=== PATIENT | male | born 1995 | race Caucasian/White ===

== ENCOUNTER → 2017-04-30 15:19 | Outpatient (POV) | payer BC, OTHER, SELFPAY ==
[2017-04-30 15:36] VITALS: BP 128/81; PULSE 81; RESP 20; O2SAT 98
--- NOTE | 2017-04-30 15:58 | P.CONS_ITS ---
Assessment and Plan (1) Degenerative joint disease (DJD) of lumbar spine Current visit: Yes Status: Chronic Qualifiers: Spinal osteoarthritis complication: without myelopathy or radiculopathy Qualified Code(s): M47.816 - Spondylosis without myelopathy or radiculopathy, lumbar region Category: Medical Code(s): M47.816 - Spondylosis without myelopathy or radiculopathy, lumbar region - Assessment and plan all Dx Assessment and Plan for all problems:: We will seek approval and plan on lumbar pleural steroid injection under fluoroscopy. This will be at the L3-L4 level. HPI - Data of Consult Patient: new to practice Consult date: 04/30/17 Requesting Physician: Pérez Ward MD Primary Care Provider: Referral Provider, Family Provider: Referral Provider, - Consult Narrative Reason for consult: Low back pain History of present illness: Mr. Ramirez is a 21 year old male referred by Dr. Conte for low back pain. He has a history of L1 fracture that occurred in December 2014. This is since then healed however he still has some continued low back pain. MRI does show degenerative changes at L1-L2, L2-L3, L3-L4 with a healed L1 fracture. Most of his pain is in the low back. He does not have much radicular symptoms. He has tried physical therapy with no relief of his pain symptoms. He is also tried chiropractic therapy with no relief of his pain symptoms. He has been on nonsteroidal anti-inflammatories for 4 months. I believe he would benefit from a lumbar epidural steroid injection under fluoroscopy. CC: Pérez Ward MD [facility] History I have reviewed the patient's past medical history: Yes - *Social History Alcohol Intake: never Occupational Status: employed - Psychiatric History Expresses thoughts of harming self/others: None Suicide Plan Description: No Plan Review of Systems - Review of Systems Review of systems:: pertinent systems reviewed and negative unless documented below - *Musculoskeletal Reports back pain Meds Allergies Allergy/AdvReac Type Severity Reaction Status Date / Time No Known Allergies Allergy Unverified 03/20/17 14:08 Objective Vital signs: Pulse Resp BP Pulse Ox 81 20 128/81 98 04/30/17 15:36 04/30/17 15:36 04/30/17 15:36 04/30/17 15:36 - Routine Back/Spine/Pelvis Exam Back/Spine: Present: vertebral tenderness - *Routine Neurological Exam Present: alert, oriented X3, moving all extremities, normal tone Opioid Risk Tool - Opioid Risk Tool-Male Family hx alcohol abuse: N Family hx illegal drugs: N Family hx rx drug abuse: N Personal hx alcohol abuse: N Personal hx illegal drugs: N Personal hx rx drug abuse: N Age: 16-45 Hx of sexual abuse: N Mental health issues-ADD,OCD,Bipolar, etc: N Hx of depression: N Male Risk Score: 1
== END ==
PROVIDERS: Visit Provider Anesthesiology
DX: M47.816 Spondylosis without myelopathy or radiculopathy, lumbar region (principal)
CPT/HCPCS: 99212

== ENCOUNTER → 2017-05-04 12:00 | Outpatient (REF) | payer BC, OTHER, SELFPAY ==
[2017-05-07 15:32] LABS: Amphetamine/Metha Screen,Urine Negative ng/mL (<1000); Barbiturates Screen,Urine Negative ng/mL (<200); Benzodiazepines Screen,Urine Negative ng/mL (200); Cannabinoid Screen,Urine Negative ng/mL (<50); Cocaine Screen,Urine Negative ng/g (<300); Methadone Screen,Urine Negative ng/mL (<300); Opiate Screen,Urine Negative ng/mL (<300); Phencyclidine Screen,Urine Negative ng/mL (<25)
== END ==
LOC: LAB 12:00
PROVIDERS: Visit Provider Nurse Practitioner Family
DX: M47.816 Spondylosis without myelopathy or radiculopathy, lumbar region (principal)
CPT/HCPCS: 80305

== ENCOUNTER → 2017-05-05 08:26 | Outpatient (CLI) | payer BC, OTHER, SELFPAY ==
[2017-05-05 10:19] LABS: Basophils % 0.7 % (0.1-2.0); Eosinophils # 0.1 K/mm3 (0.0-0.4); Eosinophils % 2.2 % (0.1-12.0); Hematocrit 48.5 % (42.0-52.0); Hemoglobin 16.4 g/dL (14.1-18.0); Lymphocytes % 39.6 K/mm3 (10-50); Mean Corpuscular HGB Conc 33.8 g/dL (31.8-35.4); Mean Corpuscular Hemoglobin 29.9 pg (27.0-31.2); Mean Corpuscular Volume 88.6 fl (80-94); Monocytes # 0.3 K/mm3 (0.1-1.0); Monocytes % 6.4 % (1.7-9.3); Neutrophils # 2.6 K/mm3 (1.8-7.8); Neutrophils % 51.1 % (37.0-80.0); Platelet Count 234 K/mm3 (142-424); Red Blood Count 5.48 M/mm3 (4.60-6.20); Red Cell Distribution Width 12.2 % (11.5-17.5); White Blood Count 5.1 K/mm3 (4.8-10.8)
[2017-05-05 11:18] LABS: Alanine Aminotransferase 32 U/L (12-78); Albumin/Globulin Ratio 1.6 (1.1-1.8); Alkaline Phosphatase 69 U/L (46-116); Anion Gap 11.3 mEq/L (5-15); Aspartate Amino Transferase 16 U/L (15-37); Bilirubin,Total 0.7 mg/dL (0.2-1.0); Blood Urea Nitrogen 13 mg/dL (7-18); Calcium 8.6 mg/dL (8.5-10.1); Carbon Dioxide 29 mmol/L (21.0-32.0); Chloride 105 mmol/L (98-107); Chol/HDL Ratio 2.8 (1-3.5); Cholesterol 116 mg/dL (140-200); Creatinine,Serum 0.77 mg/dL (0.70-1.30); Estimated Glomerular Filt Rate 126 ml/min (>60); GFR (African American) 153 ML/MIN (>60); Globulin 2.5 gm/dl (1.3-3.2); Glucose 84 mg/dL (74-106); HDL Cholesterol 41 mg/dL (27-67); LDL Cholesterol 67 mg/dL (0-130); Potassium 4.3 mmoL/L (3.5-5.1); Sodium 141 mmol/L (136-145); T4 (Thyroxine) 7.3 ug/dl (4.7-13.3); Thyroid Stimulating Hormone 0.88 uIU/ml (0.358-3.740); Total Protein,Serum 6.5 gm/dL (6.4-8.2); Triglycerides 39 mg/dL (30-200); VLDL Cholesterol 8 mg/dL (0-40)
[2017-05-08 06:22] LABS: Vitamin D 25 Hydroxy 28.5 ng/mL (30.0-100.0)
== END ==
PROVIDERS: PCP Nurse Practitioner Family; Visit Provider Nurse Practitioner Family
DX: M47.816 Spondylosis without myelopathy or radiculopathy, lumbar region; E66.9 Obesity, unspecified
CPT/HCPCS: 36415; 80053; 80061; 82652; 84436; 84443; 85025

== ENCOUNTER → 2017-09-21 16:06 | Outpatient (CLI) | payer BC, OTHER, SELFPAY | PROVIDERS: Visit Provider Nurse Practitioner Family | DX: Z79.899 Other long term (current) drug therapy (principal) ==

== ENCOUNTER → 2018-02-18 15:54 | Outpatient (CLI) | payer BC, SELFPAY ==
[2018-02-18 16:26] LABS: Amphetamine/Metha Screen,Urine Negative ng/mL (<1000); Barbiturates Screen,Urine Negative ng/mL (<200); Benzodiazepines Screen,Urine Negative ng/mL (<200); Cannabinoid Screen,Urine Negative ng/mL (<50); Cocaine Screen,Urine Negative ng/mL (<300); Methadone Screen,Urine Negative ng/mL (<300); Opiate Screen,Urine Negative ng/mL (<300); Phencyclidine Screen,Urine Negative ng/mL (<25)
[2018-02-18 16:28] LABS: Basophils # 0.1 K/mm3 (0-0.2); Basophils % 0.8 % (0.1-2.0); Eosinophils # 0.1 K/mm3 (0.0-0.4); Eosinophils % 1.6 % (0.1-12.0); Hematocrit 50.7 % (42.0-52.0); Hemoglobin 17.1 g/dL (14.1-18.0); Lymphocytes # 2.2 K/mm3 (0.7-4.5); Lymphocytes % 36.3 % (10-50); Mean Corpuscular HGB Conc 33.6 g/dL (31.8-35.4); Mean Corpuscular Hemoglobin 29.5 pg (27.0-31.2); Mean Corpuscular Volume 87.8 fl (80-94); Mean Platelet Volume 7.3 fl (7.4-10.4); Monocytes # 0.3 K/mm3 (0.1-1.0); Monocytes % 4.9 % (1.7-9.3); Neutrophils # 3.3 K/mm3 (1.8-7.8); Neutrophils % 56.4 % (37.0-80.0); Platelet Count 257 K/mm3 (142-424); Red Blood Count 5.78 M/mm3 (4.60-6.20); Red Cell Distribution Width 12.8 % (11.5-17.5); White Blood Count 5.9 K/mm3 (4.8-10.8)
[2018-02-18 16:31] LABS: Glucose,Fasting 79 mg/dL (60-105)
[2018-02-18 17:39] LABS: Alanine Aminotransferase 47 U/L (12-78); Albumin Level 4.4 gm/dL (3.4-5.0); Albumin/Globulin Ratio 1.6 (1.1-1.8); Alkaline Phosphatase 66 U/L (46-116); Anion Gap 11.8 mEq/L (5-15); Aspartate Amino Transferase 20 U/L (15-37); Bilirubin,Total 0.7 mg/dL (0.2-1.0); Blood Urea Nitrogen 17 mg/dL (7-18); Carbon Dioxide 30 mmol/L (21.0-32.0); Chloride 102 mmol/L (98-107); Chol/HDL Ratio 2.9 (1-3.5); Cholesterol 127 mg/dL (140-200); Creatinine,Serum 0.82 mg/dL (0.70-1.30); Estimated Glomerular Filt Rate 116 ml/min (>60); GFR (African American) 141 ML/MIN (>60); Globulin 2.8 gm/dl (1.3-3.2); Glucose 71 mg/dL (74-106); HDL Cholesterol 44 mg/dL (27-67); LDL Cholesterol 75 mg/dL (0-130); Potassium 3.8 mmoL/L (3.5-5.1); Sodium 140 mmol/L (136-145); T4 (Thyroxine) 8.1 ug/dl (4.7-13.3); Thyroid Stimulating Hormone 0.88 uIU/ml (0.358-3.740); Total Protein,Serum 7.2 gm/dL (6.4-8.2); Triglycerides 38 mg/dL (30-200); VLDL Cholesterol 8 mg/dL (0-40)
[2018-02-18 18:32] LABS: Glucose 1 Hour 151 mg/dL (74-106)
[2018-02-18 18:59] LABS: Glucose 2 Hour 129 mg/dL (74-106)
[2018-02-18 19:49] LABS: Glucose 3 Hour 99 mg/dL (74-106)
[2018-02-20 08:43] LABS: Vitamin D 25 Hydroxy 39.7 ng/mL (30.0-100.0)
== END ==
PROVIDERS: Visit Provider Nurse Practitioner Family
DX: E16.2 Hypoglycemia, unspecified (principal); R53.83 Other fatigue; Z02.83 Encounter for blood-alcohol and blood-drug test; E66.09 Other obesity due to excess calories
CPT/HCPCS: 36415; 80053; 80061; 80305; 82652; 82951; 83036; 84436; 84443; 85025

== ENCOUNTER 2018-07-23 16:43 | Outpatient (RCR) | payer BC, SELFPAY | END 2018-07-23 16:50 | disposition home or self-care (01) | LOC: PT 16:43 | PROVIDERS: Visit Provider Nurse Practitioner Family | DX: M54.2 Cervicalgia (principal) | CPT/HCPCS: 97163 ==

== ENCOUNTER → 2019-08-20 16:46 | Outpatient (CLI) | payer BC, SELFPAY ==
[2019-08-20 19:30] LABS: Chloride 102 mmol/L (98-107); Potassium 4.1 mmoL/L (3.5-5.1); Sodium 136 mmol/L (136-145)
[2019-08-20 19:32] LABS: Blood Urea Nitrogen 11 mg/dl (9-20)
[2019-08-20 19:33] LABS: Alanine Aminotransferase 28 U/L (12-78); Albumin Level 4.5 g/dl (3.5-5.0); Albumin/Globulin Ratio 1.8 (1.1-1.8); Alkaline Phosphatase 83 U/L (38-126); Anion Gap 12.1 mEq/L (5-15); Aspartate Amino Transferase 30 U/L (17-59); Bilirubin,Total 0.6 mg/dl (0.2-1.3); Calcium 9.2 mg/dl (8.4-10.2); Carbon Dioxide 26 mmol/L (22.0-30.0); Cholesterol 130 mg/dl (140-200); Estimated Glomerular Filt Rate 137 ml/min (>60); GFR (African American) 166 ML/MIN (>60); Globulin 2.5 g/dL (1.3-3.2); Glucose 83 mg/dl (74-100); Triglycerides 82 mg/dl (30-150); VLDL Cholesterol 16 mg/dL (0-40)
[2019-08-20 19:34] LABS: HDL Cholesterol 43 mg/dl (40-60)
[2019-08-20 19:46] LABS: Direct LDL Cholesterol 88.26 mg/dL (100-129)
[2019-08-20 19:52] LABS: T4 (Thyroxine) 8.1 ug/dl (5.53-11.0)
[2019-08-20 20:06] LABS: Thyroid Stimulating Hormone 1.58 uIU/mL (0.465-4.68)
[2019-08-22 05:36] LABS: PSA, Free 0.14 ng/mL; Prostate Specific Ag 0.3 ng/mL (0.0-4.0)
[2019-08-22 09:29] LABS: Vitamin D 25 Hydroxy 28.8 ng/mL (30.0-100.0)
== END ==
PROVIDERS: Visit Provider Nurse Practitioner Family
DX: Z01.89 Encounter for other specified special examinations (principal); E55.9 Vitamin D deficiency, unspecified; E66.9 Obesity, unspecified; Z68.31 Body mass index [BMI] 31.0-31.9, adult
CPT/HCPCS: 80053; 80061; 82652; 84153; 84154; 84436; 84443

== ENCOUNTER → 2020-06-22 08:35 | Outpatient (CLI) | payer OTHER, SELFPAY ==
--- NOTE | 2020-06-22 08:38 | MR_ITS ---
PROCEDURE: MR LUMBAR SPINE WO CON CLINICAL INDICATION: LOW BACK PAIN Pt states hx of lumbar fx in 2015 or 2016. Pt now c/o bilateral hip and leg pain [id number] with no known injury or trauma. COMPARISON: CT LSWO CT LUMBAR SPINE W/O CONTRAST from 01/06/2015 TECHNIQUE: Standard multiplanar multiecho sequences are performed without contrast. 3-D MIP and myelographic images are also rendered and reviewed FINDINGS: There is normal alignment. The cord ends at the L1. T11-T12: Unremarkable. T12-L1: Chronic wedge compression changes involve the central and anterior aspect of L1 with loss of height anteriorly of approximately 30-40 percent. This is similar compared to the previous study of 01/06/2015. Schmorl's nodes are present at the endplates. No retropulsed fragments are apparent. Degenerative disc disease L1-L2: Degenerative disc disease. L2-L3: Degenerative disc disease. L3-L4: Mild degenerative disc disease. L4-5: Unremarkable. L5-S1: Unremarkable. IMPRESSION: Mild multilevel degenerative disc disease with chronic wedge compression changes of L1. No acute finding. Dictated by: Dimitry Grijalva MD 06/23/2020 12:53 Dimitry Grijalva MD in [place] 06/23/2020 12:53
--- NOTE | 2020-06-22 08:47 | XR_ITS ---
PROCEDURE: XR ORBIT BILATERAL MIN 4V CLINICAL INDICATION: R/O METAL IN EYES PRIOR TO MRI COMPARISON: No exams were available for comparison TECHNIQUE: AP views are obtained of the orbits with the patient looking up and down. FINDINGS: No radio opaque foreign bodies evident. IMPRESSION: No radio opaque orbital foreign body identified. Dictated by: Dimitry Grijalva MD 06/22/2020 09:05 Dimitry Grijalva MD in [facility] 06/22/2020 09:05
== END ==
PROVIDERS: PCP Nurse Practitioner Family; Visit Provider Orthopaedic Surgery Adult Reconstructive Orthopaedic Surgery
DX: M54.5 Low back pain (principal); H05.53 Retained (old) foreign body following penetrating wound of bilateral orbits
CPT/HCPCS: 70200; 72148; 76376

== ENCOUNTER 2022-05-27 22:29 | Observation (INO) | payer OTHER, SELFPAY ==
[2022-05-27 22:30] VITALS: BP 148/97; PULSE 92; RESP 16; TEMP 37.4; O2SAT 99; BMI 30.4
[2022-05-27 22:37] VITALS: BP 154/100; PULSE 89; RESP 18; O2SAT 99
[2022-05-27 22:44] VITALS: BP 148/97; PULSE 91; RESP 16; O2SAT 97
--- NOTE | 2022-05-27 23:14 | CT_ITS ---
PROCEDURE INFORMATION: Exam: CT Abdomen And Pelvis With Contrast Exam date and time: 05/27/2022 11:42 PM Age: 26 years old Clinical indication: Abdominal pain; Additional info: R L low abd pain, tender distended, hypoactive TECHNIQUE: Imaging protocol: Computed tomography of the abdomen and pelvis with contrast. Radiation optimization: All CT scans at this facility use at least one of these dose optimization techniques: automated exposure control; mA and/or kV adjustment per patient size (includes targeted exams where dose is matched to clinical indication); or iterative reconstruction. Contrast material: ISOVUE; Contrast volume: 75 ml; Contrast route: IV; REPORTING DATA: Count of CT and Cardiac NM exams in prior 12 months: This patient has received 0 known CTs and 0 known cardiac nuclear medicine studies in the 12 months prior to the current study. COMPARISON: MR LUMBAR SPINE WO CON 06/22/2020 9:02 AM FINDINGS: Lungs: Minimal bibasilar atelectasis. Liver: Normal. No mass. Gallbladder and bile ducts: Normal. No calcified stones. No ductal dilation. Pancreas: Normal. No ductal dilation. Spleen: Subcentimeter hypodensity in the spleen likely a hemangioma or cyst. Adrenal glands: Normal. No mass. Kidneys and ureters: Normal. No hydronephrosis. Stomach and bowel: The adjacent terminal ileum is mildly thickened as well. No evidence of bowel obstruction. Stool in the proximal colon with decompressed distal colon. Appendix: The appendix is enlarged to 10 mm on series 3, image 84. The appendiceal wall is thickened. Intraperitoneal space: Unremarkable. No free air. No significant fluid collection. Vasculature: Unremarkable. No abdominal aortic aneurysm. Lymph nodes: Unremarkable. No enlarged lymph nodes. Urinary bladder: Unremarkable as visualized. Reproductive: Unremarkable as visualized. Bones/joints: Mild L1 central compression deformities unchanged. Soft tissues: Unremarkable. IMPRESSION: Findings consistent with acute appendicitis. No evidence of complication.
[2022-05-27 23:21] LABS: Microscopic, Urine URINE MICROSCOPIC (MICROSCOPIC)
[2022-05-27 23:23] LABS: Basophils # 0.1 K/mm3 (0-0.2); Basophils % 0.5 % (0.1-2.0); Eosinophils # 0.4 K/mm3 (0.0-0.4); Eosinophils % 2.1 % (0.1-12.0); Hematocrit 48.7 % (42.0-52.0); Hemoglobin 16.5 g/dL (14.1-18.0); Lymphocytes % 5.9 % (10-50); Mean Corpuscular Hemoglobin 29.9 pg (27.0-31.2); Mean Corpuscular Volume 87.9 fl (80-94); Monocytes # 0.8 K/mm3 (0.1-1.0); Monocytes % 4.5 % (1.7-9.3); Neutrophils # 15.1 K/mm3 (1.8-7.8); Platelet Count 281 K/mm3 (142-424); Red Blood Count 5.54 M/mm3 (4.60-6.20); Red Cell Distribution Width 13.2 % (11.5-17.5); White Blood Count 17.4 K/mm3 (4.8-10.8)
[2022-05-27 23:25] LABS: Appearance,Urine CLEAR (Clear); Bilirubin,Urine Negative (Negative); Blood, Urine Negative (Negative); Color,Urine YELLOW (Yellow); Glucose,Urine (UA) Negative (Negative); Ketones,Urine TRACE (Negative); Leukocyte Esterase,Urine Negative (Negative); Nitrate,Urine Negative (Negative); PH,Urine 7.5 (5.0-8.5); Protein,Urine Negative (Negative); Urobilinogen,Urine 0.2 EU/dl (0.2)
[2022-05-27 23:25] LABS: MANUAL DIFFERENTIAL MANUAL DIFFERENTIAL (MANUAL DIFF)
[2022-05-27 23:28] LABS: Alanine Aminotransferase 37 U/L (12-78); Albumin Level 4.7 g/dl (3.5-5.0); Albumin/Globulin Ratio 1.9 (1.1-1.8); Alkaline Phosphatase 79 U/L (38-126); Amylase 56 U/L (30-110); Anion Gap 4.8 mEq/L (5-15); Aspartate Amino Transferase 33 U/L (17-59); Bilirubin,Total 1.2 mg/dl (0.2-1.3); Blood Urea Nitrogen 9 mg/dl (9-20); Calcium 8.8 mg/dl (8.4-10.2); Carbon Dioxide 32 mmol/L (22.0-30.0); Chloride 103 mmol/L (98-107); Creatinine Clearance Estimated 178 mL/min (50-200); Estimated Glomerular Filt Rate 116 ml/min (>60); GFR (African American) 140 ML/MIN (>60); Globulin 2.5 g/dL (1.3-3.2); Glucose 102 mg/dl (74-100); Lipase 32 U/L (23-300); Potassium 3.8 mmoL/L (3.5-5.1); Sodium 136 mmol/L (136-145); Total Protein,Serum 7.2 g/dl (6.3-8.2)
--- NOTE | 2022-05-27 23:29 | HMH.EDABDPAI ---
Discharge Plan Disposition Patient Disposition: Admitted As Inpatient Chief Complaint: Abdominal Pain Prescriptions Prescriptions: No Action phentermine [Adipex-P] 37.5 mg tablet 37.5 mg PO DAILY Qty: 30 0RF Rx Instructions: must administer 30 minutes before or 1-2 hours after breakfast Referrals Follow up/Referrals: Wang Rivera APRN [Primary Care Provider] - See instructions Henri Raygoza MD [Staff Physician] - See instructions Clinical Impressions Clinical Impression: Acute appendicitis Discharge ED Provider: Shelbi (ED)Kenneth Abdominal Pain HPI General Chief Complaint: Abdominal Pain Stated Complaint: lower Abd Pain Time Seen by Provider: 05/27/22 23:29 Mode of Arrival: Family Vehicle Source of Information: Patient and Medical Record Limitations: No Limitations Description of Symptoms (Recalled from ER Triage Doc. by RN): Pt c/o lower abd pain that began last night after dinner. States his feels like my whole belly is swollen . He is tender to palpation throughout lower ABD. He has taken tylenol, gas-ex, pepto bismol, pepcid, golytley (2 TBSP), and benadryl. States he has passed a little gas but not much. States he has not had a BM for 2 days. History of Present Illness HPI narrative: progressive lower abd pain over the last day with dec appetite MD complaint: abdominal pain Onset (ago): hour(s) Consistency: constant Location: RLQ Severity: moderate Associated symptoms: nausea and anorexia Related Data Home Medications Medication Instructions Recorded Confirmed phentermine 37.5 mg tablet 37.5 mg PO DAILY Weight loss 05/28/22 05/28/22 (Adipex-P) Allergies Allergy/AdvReac Type Severity Reaction Status Date / Time No Known Allergies Allergy Verified 11/18/21 08:45 [facility] Disclaimer: The information contained in this section may have been updated after the patient was seen, as this information can be updated by other users. Social History Smoking Status: Never smoker alcohol intake: never substance use type: denies use current occupational status: employed Travel in the last 8 weeks: None household members: spouse and children housing: house ROS Obtained: Yes All systems reviewed & no additional complaints except as documented Physical Exam General General appearance: alert Head Head exam: normocephalic Eye Eye exam: Present PERRL and EOMI ENT ENT exam: Present mucous membranes moist Neck Neck exam: Present trachea midline Respiratory Respiratory exam: Absent respiratory distress Cardiovascular Cardiovascular exam: Present regular rate Abdominal Exam Abdominal exam: Present soft, tenderness and tenderness at McBurney's Point Abdominal tenderness: Present RLQ and moderate Extremities Exam Extremities exam: Present full ROM Neurological Exam Neurological exam: Present alert and oriented X3; Absent CN II-XII intact Skin Skin exam: Absent rash Medical Decision Making Medical Records Medical records reviewed: Yes I reviewed the patient's medical records. Juan Inquiry Pt receiving controlled substance: No Vital Signs: 05/27/22 22:30 05/27/22 22:37 05/27/22 22:44 Temperature 99.4 F Temperature Source Oral Pulse Rate 89 91 H Pulse Rate [Right] 92 H Respiratory Rate 16 18 16 Blood Pressure 154/100 H 148/97 H Blood Pressure [Right Arm] 148/97 H Blood Pressure Mean 111 109 Blood Pressure Mean [Right Arm] 114 Blood Pressure Source [Right Arm] Automatic Cuff 02 Sat by Pulse Oximetry 99 99 97 Oxygen Delivery Method Room Air Lab Data Lab results reviewed: Yes I reviewed the patient's lab results. Lab Results 05/27/22 22:35: Urine Color Yellow, Urine Appearance Clear, Urine pH 7.5, Ur Specific [place] 1.020, Urine Protein Negative, Urine Glucose (UA) Negative, Urine Ketones Trace, Urine Blood Negative, Urine Nitrate Negative, Urine Bilirubin Negative, Urine Urobilinogen 0.2, Ur Leukocyte Esterase Negative
[2022-05-27 23:30] VITALS: BP 158/80; PULSE 83; O2SAT 96
[2022-05-27 23:34] LABS: C-Reactive Protein 45.6 mg/L (0-4)
[2022-05-27 23:39] LABS: Bacteria,Urine Trace /lpf; Squamous Epithelial Cell,Urine Occasional #/hpf (0-5)
[2022-05-27 23:43] LABS: Lymphocytes % 7 % (10-50); Monocytes % 2 % (2-9); Neutrophils % 91 % (42-76); Platelet Estimate Normal; RBC Morphology Normal; Total Cells Counted 100
[2022-05-27 23:48] LABS: Procalcitonin 0.047 ng/mL (0.0-2.0)
[2022-05-27 23:54] VITALS: BP 133/84; PULSE 93; O2SAT 98
[2022-05-27 23:55] LABS: Erythrocyte Sedimentation Rate 1 mm/hr (0-15)
[2022-05-28] VITALS (24 sets, daily range): BP systolic 106–138; BP diastolic 61–84; PULSE 86–106; RESP 12–19; TEMP 36.5–43; O2SAT 89–100; BMI 29.7; BMI 29.5
--- NOTE | 2022-05-28 00:18 | PC.NURSE ---
DR. MACKEY PAGED FOR ED DOCTOR
--- NOTE | 2022-05-28 00:20 | PC.WOUNDNOTE ---
DR. CORONA ON PHONE WITH DR. MACKEY
--- NOTE | 2022-05-28 00:23 | PC.NURSE ---
supervisor weaving notified for bed assignment
[2022-05-28 00:37] LABS: Coronavirus 19, PCR Not Detected (NotDetected); Influenza A, PCR Not Detected (NotDetected); Influenza B, PCR Not Detected (NotDetected)
--- NOTE | 2022-05-28 00:46 | PC.NURSE ---
pt educated on NPO status. He was given oral swabs to keep mouth moist. Also, verified with dairy processing supervisor the visitor policy for [facility]. Pt's and 3 children have been in the car waiting. Let pt know he may have his family visit for a short time when transferred to [facility]. He may have 1 adult person stay the night, however a usability engineer may not be available until later this morning. He stated his understanding.
--- NOTE | 2022-05-28 01:15 | PC.NURSE ---
pt arrived to floor at this time
--- NOTE | 2022-05-28 01:53 | PC.NURSE ---
spoke with Dr. Raygoza about pt. still bein in pain after getting morphine in the ER @1230. orders to give dilaudid 1mg IV q4 prn for pain.
--- NOTE | 2022-05-28 07:19 | PC.NURSE ---
kareem not reassed, prior shift. entered visitors in error
--- NOTE | 2022-05-28 07:40 | EXP.GEN.HP ---
HPI HPI HPI: Patient is a healthy 26-year-old male who had developed lower abdominal pain in the evening of 05/26/2022. He felt like this may be gas pain initially. He did complain of some abdominal swelling. He had tried taking Tylenol, Gas-X, Pepto-Bismol, Pepcid, GoLytely, and Benadryl. He had decreased appetite. Pain persisted and he had increasing tenderness. Due to the persistence of his symptoms he presented to the emergency department in the late evening of 05/27/2022. CT scan revealed enlarged 10 mm appendix with thickening with no evidence of any perforation. General surgery was contacted and plan was made for admission for appendicitis. [facility] Disclaimer: The information contained in this section may have been updated after the patient was seen, as this information can be updated by other users. Family History (Updated 05/28/22 @ 02:12 by Nirmala Youssef RN) Family history of cancer Social History (Updated 05/28/22 @ 02:12 by Nirmala Youssef RN) Smoking Status: Never smoker alcohol intake: never substance use type: denies use current occupational status: employed Travel in the last 8 weeks: None household members: spouse and children housing: house Meds Home Medications and Allergies Home Medications Medication Instructions Recorded Confirmed Type phentermine 37.5 mg tablet 37.5 mg PO DAILY Weight loss 05/28/22 05/28/22 History (Adipex-P) New Prescriptions to Start Prescriptions: Allergies Allergy/AdvReac Type Severity Reaction Status Date / Time No Known Allergies Allergy Verified 11/18/21 08:45 Exam Data for Last 24 hours Vital signs and Labs for Last 24 Hours: Temp Pulse Resp BP Pulse Ox 98.9 F 100 H 17 136/77 100 05/28/22 07:24 05/28/22 07:24 05/28/22 07:24 05/28/22 07:24 05/28/22 07:24 Laboratory Results - last 24 hr 05/27/22 22:35: Urine Color Yellow, Urine Appearance Clear, Urine pH 7.5, Ur Specific [place] 1.020, Urine Protein Negative, Urine Glucose (UA) Negative, Urine Ketones Trace, Urine Blood Negative, Urine Nitrate Negative, Urine Bilirubin Negative, Urine Urobilinogen 0.2, Ur Leukocyte Esterase Negative, Urine RBC None, Urine WBC None, Ur Squamous Epith Cells Occasional, Urine Bacteria Trace 05/27/22 23:04: WBC 17.4 H, RBC 5.54, Hgb 16.5, Hct 48.7, MCV 87.9, MCH 29.9, MCHC 34.0, RDW 13.2, Plt Count 281, MPV 8.0, Neut % (Auto) 87.0 H, Lymph % (Auto) 5.9 L, Robertson % (Auto) 4.5, Eos % (Auto) 2.1, Baso % (Auto) 0.5, Neut # (Auto) 15.1 H, Lymph # (Auto) 1.0, Robertson # (Auto) 0.8, Eos # (Auto) 0.4, Baso # (Auto) 0.1, Total Counted 100, Neutrophils % (Manual) 91 H, Lymphocytes % (Manual) 7 L, Monocytes % (Manual) 2, Platelet Estimate Normal, RBC Morphology Normal, ESR 1 05/27/22 23:04: Sodium 136, Potassium 3.8, Chloride 103, Carbon Dioxide 32 H, Anion Gap 4.8 L, BUN 9, Creatinine 0.80, Estimated Creat Clear 178, Estimated GFR 116, Est GFR ( Amer) 140, Glucose 102 H, Calcium 8.8, Total Bilirubin 1.2, AST 33, ALT 37, Alkaline Phosphatase 79, C-Reactive Protein 45.6 H, Total Protein 7.2, Albumin 4.7, Globulin 2.5, Albumin/Globulin Ratio 1.9 H, Amylase 56, Lipase 32, Procalcitonin 0.047 05/28/22 00:25: SARS-CoV-2 (PCR) Not detected, Influenza A Untype (PCR) Not detected, Influenza Type B (PCR) Not detected I & O for Last 24 hours: Intake & Output 05/25/22 05/26/22 05/27/22 05/28/22 11:59 11:59 11:59 11:59 Intake Total 0 / 0 Output Total 0 / 0 Balance 0 / 0 Weight 195 lb 4.8 oz *Routine HEENT Exam Head: Present normocephalic Eye: Present EOMI ENT: Present mucous membranes moist *Routine Respiratory Exam Respiratory: Present CTA bilaterally *Routine Cardiovascular Exam Cardiovascular: Present RRR *Routine Abdominal Exam Abdominal: Present soft and tenderness *Routine Rectal Exam Rectal:: deferred *Routine Genitalia Exam Genitalia:: deferred Results Results Lab Results Last 24 Hours:: Laboratory Results - last 24 hr
--- NOTE | 2022-05-28 08:40 | P.PN_ITS ---
[facility] Disclaimer: The information contained in this section may have been updated after the patient was seen, as this information can be updated by other users. Family History (Updated 05/28/22 @ 02:12 by Nirmala Youssef RN) Other Family history of cancer Social History (Updated 05/28/22 @ 02:12 by Nirmala Youssef RN) Smoking Status: Never smoker alcohol intake: never substance use type: denies use current occupational status: employed Travel in the last 8 weeks: None household members: spouse and children housing: house [facility] Anesthesia Checklist Patient Identification Patient Identification: Verbal (Name & ) Structural Data Admitted From: Inpatient Planned Operative Procedure/s: lap appy Consent for Planned Operative Procedure(s) Verified: Yes NPO Status Verified Time NPO: 00:00 Airway Assessment C-Spine Mobility Assessed: Yes TMJ Mobility Assessed: Yes Dentition: Good Dentition Neurological Assessment Level of Consciousness: Awake, Alert and Appropriate Anesthesia Plan Anesthesia Risk discussed: Yes Anesthesia Plan: Verified ASA Class: II Anesthesia Type: General
--- NOTE | 2022-05-28 09:11 | EXP.OP.NOTE ---
Date of procedure: 05/28/22 Pre-op Diagnosis:: Acute appendicitis Post-op Diagnosis:: Same Procedure performed:: Laparoscopic appendectomy Surgeon:: Henri Raygoza MD TRUCK REPAIR SUPERVISOR:: Quan Henning Anesthesia: GETA Estimated blood loss (mL): 10 Clinical Note:: Patient is a healthy 26-year-old male who had developed lower abdominal pain in the evening of 05/26/2022.? He felt like this may be gas pain initially.? He did complain of some abdominal swelling.? He had tried taking Tylenol, Gas-X, Pepto-Bismol, Pepcid, GoLytely, and Benadryl.? He had decreased appetite.? Pain persisted and he had increasing tenderness.? Due to the persistence of his symptoms he presented to the emergency department in the late evening of 05/27/2022.? CT scan revealed enlarged 10 mm appendix with thickening with no evidence of any perforation.? General surgery was contacted and plan was made for admission for appendicitis. Operative findings:: He had an acute suppurative appendicitis which was somewhat retrocecal. The appendix was adherent secondary to inflammation to tissue surrounding terminal ileum as well as sigmoid colon. Operative note:: Patient was taken to the operating room. He was given preoperative intravenous antibiotics. In the operating room he was placed in a supine position. General anesthesia was induced via endotracheal tube. Li catheter was placed. Abdomen was prepped and draped in the standard surgical fashion. Subumbilical skin incision was made and while performing abdominal wall lift Veress needle was inserted. CO2 pneumoperitoneum was achieved to 15 mmHg. 12 mm optical trocar was inserted at the umbilicus. Intraperitoneal contents were visualized. He was positioned in reverse Trendelenburg with left side down. 5 mm trocar was inserted in the suprapubic location. 5 mm trocar was inserted in the right upper abdomen. 10 mm laparoscope was replaced with a 5 mm angled laparoscope and inserted through the right upper abdominal trocar site. The appendix was somewhat retrocecal. Initially it was difficult to deliver. The appendix at its base was grasped. Exposure was achieved. Some peritoneal attachments were incised using BRISEIDA ultrasonic harmonic onel. The appendiceal tip was the point that was mostly inflamed and this was dissected free from the terminal ileum and surrounding tissues around the sigmoid colon where it was adherent secondary to inflammation. Appendix was delivered anteriorly. The mesoappendix was then carefully divided with BRISEIDA ultrasonic harmonic onel with care taken to coagulate the appendiceal artery in the process. Dissection was carried down to the appendiceal base. The appendix was divided at its base with an endoscopic MILES linear cutting stapling device. Appendix was placed within an Endo Catch retrieval device and removed from the peritoneal cavity via the umbilical trocar site. Appendiceal stump staple line was inspected for integrity and hemostasis which was assured. Irrigation was performed of the pericecal region and pelvis and aspirated till clear. Trocars were then removed as CO2 pneumoperitoneum was evacuated. Fascia at the umbilicus was closed with a 0 Vicryl suture. Local anesthetic was infiltrated. Skin incisions were closed with 4-0 Monocryl in a subcuticular fashion. Dermabond and dressings were applied. Condition: stable Disposition: PACU Complications:: None immediately apparent
--- NOTE | 2022-05-28 09:18 | HMH.PHAINT1 ---
Pharmacy Intervention Comments: MEDICATION RECONCILIATION COMPLETE USING EXTERNAL PHARMACY FILL HISTORY AND GUILLERMO REPORT.
--- NOTE | 2022-05-28 09:24 | EXP.ANES.I ---
[facility] Anesthesia Record Part I Anesthesia Record I Intake, IV Amount: 1,500 Estimated blood loss (mL): 0 Urine output (mL): 100 Blood Pressure: 131/76 SaO2: 95 Pulse Rate: 105 Respiratory Rate: 12 Temperature: 98.3 F Patient is:: Awake, Drowsy and Stable Stable to PACU at:: 09:20
--- NOTE | 2022-05-29 13:49 | CARE MANAGER ---
Contacted patient related to hospital discharge and left VM. Patient called back and stated that he picked up his medication and made his follow up appointment. Denies questions or concerns. PRABHJOT Azevedo
--- NOTE | 2022-05-29 14:06 | EXP.ANES.II ---
[facility] Anesthesia Record Part II Anesthesia Record Part II Discharge Time: 09:50 Destination: Medical Surgical Department PACU nurse assessment reviewed?: Yes Patient Condition:: Good Anesthesia Complications:: None Swallowing reflex intact?: Yes Cyanosis?: No Blood Pressure: 128/80 Pulse Rate: 98 Temperature: 99.3 F Mental Status: Alert & Oriented Pain level:: 0 Nausea and/or vomitting:: None Intake, IV Amount: 0
[2022-05-29 14:07] VITALS: BP 128/80; PULSE 98; TEMP 37.4
== END 2022-05-28 17:03 | disposition home or self-care (01) ==
LOC: ER 05-28 00:30 → 2ND 05-28 01:56
PROVIDERS: Admitting Provider Surgery; Emergency Provider Emergency Medicine; PCP Nurse Practitioner Family; Visit Provider Surgery
PROC: 0DTJ4ZZ Resection of Appendix, Percutaneous Endoscopic Approach (ICD-10-PCS; CPT 44970; principal; 2022-05-28 08:00)
DX: K35.80 Unspecified acute appendicitis (principal)
CPT/HCPCS: 44970; 74177; 80053; 81001; 82150; 83690; 84145; 85007; 85025; 85651; 86140; 88304; 99285; C9803; G0378; J2405; J2543; J2710; Q9967; U0003; U0005

== ENCOUNTER 2025-02-24 10:15 | Outpatient (CLI) | payer BC, SELFPAY | END 2025-02-24 23:59 | disposition home or self-care (01) | LOC: LAB.DROPOF 02-25 10:20 | PROVIDERS: PCP Nurse Practitioner Family; Visit Provider Student in an Organized Health Care Education/Training Program | DX: J02.0 Streptococcal pharyngitis (principal) | CPT/HCPCS: 87070; 87077 ==